=== PATIENT | female | born 1940 | race African-American/Black ===

== ENCOUNTER 2018-04-17 15:20 | Inpatient (IN) | payer OTHER, MEDICAID ==
[~2018-04-17] VITALS: Ht 162.6 cm; Wt 103.0 kg
[~2018-04-17 15:20] MED LIST: ACET-3161 PO; ASPI-1159 PO; CYAN100069 PO; METO-396 PO; NITR0.4T49 SL; SIME125C81 PO; VALS1TAB74 PO
[2018-04-17] MEDS ORDERED: SODIUM CHLORIDE 0.9% 1,000 ML IV ONE (16:08)
[2018-04-17] MEDS ORDERED: ONDANSETRON HCL 4MG/2ML INJ IV STA (16:08)
[2018-04-17 16:49] LABS: BASOPHILS % 0.4 % (0.0-2.0); EOSINOPHILS % 1.2 % (0.0-5.0); HEMATOCRIT. 40.3 % (36.0-48.0); HEMOGLOBIN. 13.1 g/dL (12.0-16.0); LYMPHOCYTES % 21.4 % (20.0-50.0); MEAN CORPUSCULAR HEMOGLOBIN 26.8 pg (28.0-32.0); MEAN CORPUSCULAR VOLUME 82.7 fL (81.0-99.0); MEAN PLATELET VOLUME 8.4 fl (7.4-10.4); MONOCYTES % 13.4 % (2.0-8.0); NEUTROPHILS % 63.6 % (40.0-76.0); PLATELET 208 x1000/uL (130-400); RED BLOOD CELL COUNT 4.87 mill/uL (4.2-5.4); RED CELL DISTRIBUTION WIDTH 13.5 % (11.6-14.6)
[2018-04-17 16:53] LABS: CHLORIDE 104 mEq/L (98-107)
[2018-04-17 16:55] LABS: PROTHROMBIN TIME 10.5 sec (9.1-11.1)
[2018-04-17] MEDS ORDERED: PIPERACILLIN/TAZOBACTAM 3.375GM/50ML PREMIX IV ONE (17:45)
[2018-04-17] MEDS ORDERED: IBUPROFEN 600MG TABLET PO ONE (17:45)
[2018-04-17] MEDS ORDERED: PIPERACILLIN/TAZ 3.375G PREMIX 50 ML IV SCH ×2 (17:50→22:00)
[2018-04-17] MEDS ORDERED: ACETAMINOPHEN 500MG TABLET PO ONE (19:45)
[2018-04-17 20:01] LABS: CLARITY URINE CLEAR (CLEAR); COLOR URINE YELLOW (YELLOW); KETONES URINE NEGATIVE (NEGATIVE); LEUKOCYTE ESTERASE URINE NEGATIVE (NEGATIVE); NITRITE URINE NEGATIVE (NEGATIVE); OCCULT BLOOD URINE 2+ (NEGATIVE); PH URINE 5.5 (4.5-8.0); PROTEIN URINE NEGATIVE (NEGATIVE)
[2018-04-17] MEDS ORDERED: ONDANSETRON HCL 4MG/2ML INJ IV PRN (22:00)
[2018-04-17] MEDS ORDERED: CLONIDINE 0.1MG TABLET PO PRN (22:00)
[2018-04-17] MEDS ORDERED: IPRATROPIUM/ALBUTEROL 0.5-3(2.5)MG/3ML NEB INH PRN (22:00)
[2018-04-17] MEDS ORDERED: DIPHENHYDRAMINE 50MG/ML VIAL IV PRN (22:00)
[2018-04-17 23:28] VITALS: BP 125/55
[2018-04-17 23:30] VITALS: BP 123/55
[2018-04-18] MEDS: SODIUM CHLORIDE 0.9% 1,000 ML IV SCH ×3 (00:26→17:34)
[2018-04-18] MEDS: ACETAMINOPHEN 325MG TABLET PO PRN ×2 (00:27→13:41)
[2018-04-18] MEDS: GUAIFENESIN 200MG/10ML SUGAR FREE UDC PO PRN ×3 (00:37→17:33)
[2018-04-18] MEDS ORDERED: POTASSIUM CHLORIDE INJ 40 MEQ in DEXT 5% WATER 250 ML IV NR (01:00)
[2018-04-18] MEDS: PIPERACILLIN/TAZ 3.375G PREMIX 50 ML IV SCH ×3 (02:25→17:32)
[2018-04-18 04:00] VITALS: BP 128/83
[2018-04-18] MEDS ORDERED: LEVOFLOXACIN 500MG PREMIX 100 ML IV SCH (05:00)
[2018-04-18 07:38] LABS: HEMATOCRIT. 37.3 % (36.0-48.0); HEMOGLOBIN. 11.9 g/dL (12.0-16.0); MEAN CORPUSCULAR HEMOGLOBIN 26.5 pg (28.0-32.0); MEAN CORPUSCULAR VOLUME 83.2 fL (81.0-99.0); MEAN PLATELET VOLUME 7.7 fl (7.4-10.4); PLATELET 189 x1000/uL (130-400); RED BLOOD CELL COUNT 4.48 mill/uL (4.2-5.4); RED CELL DISTRIBUTION WIDTH 13.3 % (11.6-14.6)
[2018-04-18 07:44] LABS: PHOSPHORUS 3.6 mg/dL (2.5-4.9)
[2018-04-18 08:00] VITALS: BP 134/59
[2018-04-18] MEDS ORDERED: FAMOTIDINE 20MG/2ML VIAL IV SCH (09:00)
[2018-04-18] MEDS ORDERED: POTASSIUM CHLORIDE 20MEQ TABLET SR PO SCH (10:30)
[2018-04-18 11:25] LABS: PLATELET ESTIMATE NORMAL
[2018-04-18 12:08] VITALS: BP 127/68
[2018-04-18 16:00] VITALS: BP 134/60
[2018-04-18] MEDS ORDERED: BENZONATATE 100MG CAPSULE PO PRN (17:45)
[2018-04-18 20:00] VITALS: BP 99/66
[2018-04-18] MEDS: IPRATROPIUM/ALBUTEROL 0.5-3(2.5)MG/3ML NEB HHN SCH (20:03)
[2018-04-18] MEDS: FAMOTIDINE 20MG TABLET PO SCH (21:45)
[2018-04-18] MEDS: GUAIFENESIN 600MG ER TABLET PO SCH (21:45)
[2018-04-19] VITALS: BP 132/48
[2018-04-19] MEDS: IPRATROPIUM/ALBUTEROL 0.5-3(2.5)MG/3ML NEB HHN SCH ×4 (02:02→21:03)
[2018-04-19 04:00] VITALS: BP 131/74
[2018-04-19] MEDS: LEVOFLOXACIN 500MG PREMIX 100 ML IV SCH (04:39)
[2018-04-19] MEDS: SODIUM CHLORIDE 0.9% 1,000 ML IV SCH (04:40)
[2018-04-19] MEDS ORDERED: LEVOFLOXACIN 250MG PREMIX 50 ML IV SCH (06:00)
[2018-04-19 08:00] VITALS: BP 112/68
[2018-04-19] MEDS: GUAIFENESIN 600MG ER TABLET PO SCH ×2 (08:46→20:36)
[2018-04-19] MEDS: FAMOTIDINE 20MG TABLET PO SCH ×2 (08:46→20:36)
[2018-04-19] MEDS: IBUPROFEN 600MG TABLET PO PRN (08:46)
[2018-04-19] MEDS: GUAIFENESIN 200MG/10ML SUGAR FREE UDC PO PRN ×2 (11:19→18:16)
[2018-04-19 12:00] VITALS: BP 125/76
[2018-04-19] MEDS ORDERED: LOPERAMIDE HCL 2MG CAPSULE PO PRN (13:00)
[2018-04-19] MEDS ORDERED: POTASSIUM CHLORIDE 20MEQ TABLET SR PO NR (13:00)
[2018-04-19 16:00] VITALS: BP 143/28
[2018-04-19] MEDS: ACETAMINOPHEN 325MG TABLET PO PRN (18:16)
[2018-04-19 20:00] VITALS: BP 137/83
[2018-04-20] VITALS: BP 128/66
[2018-04-20] MEDS: IPRATROPIUM/ALBUTEROL 0.5-3(2.5)MG/3ML NEB HHN SCH ×4 (01:25→19:53)
[2018-04-20] MEDS: SODIUM CHLORIDE 0.9% 1,000 ML IV SCH (02:05)
[2018-04-20] MEDS: GUAIFENESIN 200MG/10ML SUGAR FREE UDC PO PRN (03:23)
[2018-04-20 04:00] VITALS: BP 151/79
[2018-04-20] MEDS: LEVOFLOXACIN 500MG PREMIX 100 ML IV SCH (05:41)
[2018-04-20 07:12] LABS: BASOPHILS % 0.4 % (0.0-2.0); EOSINOPHILS % 3.4 % (0.0-5.0); HEMATOCRIT. 35.7 % (36.0-48.0); HEMOGLOBIN. 11.6 g/dL (12.0-16.0); LYMPHOCYTES % 54.5 % (20.0-50.0); MEAN CORPUSCULAR HEMOGLOBIN 26.9 pg (28.0-32.0); MEAN PLATELET VOLUME 7.7 fl (7.4-10.4); MONOCYTES % 12.4 % (2.0-8.0); NEUTROPHILS % 29.3 % (40.0-76.0); PLATELET 206 x1000/uL (130-400); RED CELL DISTRIBUTION WIDTH 13.7 % (11.6-14.6)
[2018-04-20 07:18] LABS: CHLORIDE 111 mEq/L (98-107)
[2018-04-20 07:26] LABS: PHOSPHORUS 3.1 mg/dL (2.5-4.9)
[2018-04-20 08:19] VITALS: BP 156/85
[2018-04-20] MEDS: FAMOTIDINE 20MG TABLET PO SCH ×2 (08:52→21:41)
[2018-04-20] MEDS: GUAIFENESIN 600MG ER TABLET PO SCH ×2 (08:52→21:41)
[2018-04-20 12:30] VITALS: BP 142/76
[2018-04-20] MEDS: CEFAZOLIN 500 MG in DEXTROSE 5% WATER 50 ML IV SCH ×2 (16:18→21:41)
[2018-04-20 16:30] VITALS: BP 154/80
[2018-04-20 20:00] VITALS: BP 139/74
[2018-04-21] VITALS: BP 143/83
[2018-04-21] MEDS: IPRATROPIUM/ALBUTEROL 0.5-3(2.5)MG/3ML NEB HHN SCH ×3 (02:00→13:50)
[2018-04-21 04:00] VITALS: BP 141/84
[2018-04-21] MEDS: LEVOFLOXACIN 500MG PREMIX 100 ML IV SCH (05:40)
[2018-04-21] MEDS: SODIUM CHLORIDE 0.9% 1,000 ML IV SCH (05:41)
[2018-04-21] MEDS: CEFAZOLIN 500 MG in DEXTROSE 5% WATER 50 ML IV SCH ×2 (07:13→13:29)
[2018-04-21 08:00] VITALS: BP 143/89
[2018-04-21] MEDS: GUAIFENESIN 600MG ER TABLET PO SCH (08:13)
[2018-04-21] MEDS: FAMOTIDINE 20MG TABLET PO SCH (08:14)
[2018-04-21 12:00] VITALS: BP 141/75
[2018-04-21] MEDS: GUAIFENESIN 200MG/10ML SUGAR FREE UDC PO PRN (13:34)
[2018-04-21] MEDS: IBUPROFEN 600MG TABLET PO PRN (13:34)
[2018-04-21 16:00] VITALS: BP 139/97
== END 2018-04-21 19:02 | disposition home or self-care (01) | DRG 871 ==
LOC: ER 15:20 → 8WST 21:25 → EDBEDREQ 21:32 → EDBEDREQTM 21:32 → ENRESERV 22:22
PROVIDERS: ADMIT Internal Medicine; ATTEND Internal Medicine
DX: A41.9 Sepsis, unspecified organism (principal); J18.9 Pneumonia, unspecified organism; N39.0 Urinary tract infection, site not specified; E87.6 Hypokalemia; I10 Essential (primary) hypertension; Z82.49 Family history of ischemic heart disease and other diseases of the circulatory system; Z83.3 Family history of diabetes mellitus; I25.2 Old myocardial infarction; Z90.49 Acquired absence of other specified parts of digestive tract; Z60.2 Problems related to living alone
CPT/HCPCS: 36415; 71045; 74176; 76705; 80048; 82962; 83605; 83735; 83880; 84100; 84484; 87015; 87045; 87077; 87186; 87427; 87449; 87804; 93005; 94640; 96374; 96375; 99285; C1893; J0690; J1200; J1956; J2405; J2543; J3480; J3490; J7030; J7060; J7620

== ENCOUNTER 2021-04-29 16:12 | Emergency (ER) | payer MEDICARE, MEDICAID ==
[~2021-04-29] VITALS: Ht 167.6 cm; Wt 79.0 kg
[~2021-04-29 16:12] MED LIST changes: +AMIO100T4 PO; +APIX5TAB MT; -ASPI-1159 PO; +ASPI-1497 MT; -METO-396 PO; -VALS1TAB74 PO; +VALS1TAB75 PO
[2021-04-29 16:55] VITALS: BP 143/67
[2021-04-29] MEDS ORDERED: ACETAMINOPHEN 325MG TABLET PO ONE (20:30)
[2021-04-29 21:00] LABS: CHLORIDE 108 mEq/L (98-107)
[2021-04-29 21:14] LABS: PROTHROMBIN TIME 10.7 sec (9.6-11.0)
[2021-04-29 21:19] LABS: BASOPHILS % 0.2 % (0.0-2.0); EOSINOPHILS % 0.4 % (0.0-5.0); HEMATOCRIT. 38.2 % (36.0-48.0); HEMOGLOBIN. 12.4 g/dL (12.0-16.0); LYMPHOCYTES % 50.9 % (20.0-50.0); MEAN CORPUSCULAR HEMOGLOBIN 27.1 pg (28.0-32.0); MEAN CORPUSCULAR VOLUME 83.8 fL (81.0-99.0); MEAN PLATELET VOLUME 7.4 fl (7.4-10.4); MONOCYTES % 7.5 % (2.0-8.0); PLATELET 290 x1000/uL (130-400); RED BLOOD CELL COUNT 4.57 mill/uL (4.2-5.4); RED CELL DISTRIBUTION WIDTH 13.8 % (11.6-14.6)
== END 2021-04-29 23:32 | disposition home or self-care (01) ==
LOC: ER 16:12
DX: S49.82XA Other specified injuries of left shoulder and upper arm, initial encounter (principal); R07.89 Other chest pain; I11.9 Hypertensive heart disease without heart failure; W01.0XXA Fall on same level from slipping, tripping and stumbling without subsequent striking against object, initial encounter; Y93.89 Activity, other specified; Y92.89 Other specified places as the place of occurrence of the external cause
CPT/HCPCS: 36415; 71045; 73030; 73060; 80053; 83880; 84484; 85025; 93005; 99285